=== PATIENT | male | born 1945 | race Caucasian/White ===

== ENCOUNTER → 2018-12-31 08:54 | Outpatient (CLI) | payer MEDICARE, SELFPAY ==
--- NOTE | 2018-12-31 | DI.ECHO.S_ITS ---
[place] [facility]---------+ [facility] +---------+ : : [address] : [place] : : : : [id number] : : : : Phone: [phone]+ Echocardiogram Report + + :Name: PASCUAL OLIVAS Study Date: 12/31/2018 Height: 72 in : :[facility] Weight: 224 lb : : Gender: Male BSA: 2.2 m2 : :: 1945 Age: 73 yrs BP: 118/64 mmHg: :Reason For Study: Mitral Valve- Regurgitation : :Ordering Physician: Jesse : :Timo Performed By: Kathryn Almaguer : :Referring: Dr. Rick Kraft : + + Interpretation Summary The left ventricle is normal in size, wall thickness, and systolic function without any focal wall motion abnormalities with the ejection fraction visually estimated to be 55-60% and appears unchanged compared to the previous study. Diastolic parameters suggest probable normal left ventricular diastolic function and normal filling pressures. There has been no significant change since the previous study. The right ventricle grossly appears normal in size with probable normal systolic function and appears unchanged compared to the previous study. The right ventricular systolic pressure is estimated to be at least 31 mmHg based on an estimated right atrial pressure of 8 mm Hg, and is likely similar compared to the previous study. Both atria are mildly dilated. The right atrium has mildly decreased in size since the prior echo exam. There is mild to moderate mitral regurgitation with an eccentric jet of mitral regurgitation that is directed anteriorly but appears unchanged compared to the previous study. There is no other significant valvular heart disease. The ascending aorta and aortic arch are moderately enlarged, measuring 4.0 and 3.6 cm, respectively, but grossly similar compared to the previous study when they measure 3.9 and 3.4 cm, respectively. The patient was in sinus bradycardia with heart rates between 47-60 bpm during the exam which is unchanged compared to the previous study. Procedure: A two-dimensional transthoracic echocardiogram with color flow and Doppler was performed. The study quality was technically adequate. Comparison is made with the echocardiogram of 04-17-14. The patient was in sinus bradycardia with heart rates between 47-60 bpm during the exam. This is unchanged compared to the previous study. Left Ventricle: The left ventricle is normal in size, wall thickness, and systolic function without any focal wall motion abnormalities. The ejection fraction is estimated to be 55-60%. This is unchanged compared to the previous study. Diastolic parameters suggest probable normal left ventricular diastolic function and normal filling pressures. There has been no significant change since the previous study. Right Ventricle: The right ventricle grossly appears normal in size with probable normal systolic function. This is unchanged compared to the previous study. Atria: Both atria are mildly dilated. The right atrium has mildly decreased in size since the prior echo exam. The interatrial septum is intact with no evidence for an atrial septal defect. Mitral Valve: The mitral valve leaflets appear borderline thickened, but open well. There is mild to moderate mitral regurgitation. There is an eccentric jet of mitral regurgitation that is directed anteriorly. This is unchanged compared to the previous study. Aortic Valve: The aortic valve is trileaflet. The aortic valve opens well. No aortic regurgitation is present. Tricuspid Valve: The tricuspid valve is normal in structure and function. There is a trace or physiologic amount of tricuspid regurgitation. The right ventricular systolic pressure is estimated to be at least 31 mmHg based on an estimated right atrial pressure of 8 mm Hg. This is likely similar compared to the previous study. Pulmonic Valve: The pulmonic valve is normal in structure and function. There is trace pulmonic regurgitation. There is no other significant valvular heart disease. Great Vessels: The aortic root is normal size. The ascending aorta is moderately enlarged. The aortic arch is moderately enlarged. This is similar compared to the previous study. The IVC is dilated (diameter is greater than 2.1 cm) yet it collapses greater than 50% with a sniff. This suggests a right atrial pressure of 8 mm Hg. Pericardium/ Pleura There is no pericardial effusion. There is no pleural effusion. MMode/2D Measurements & Calculations LVIDd: 4.8 cm Ao root diam: 3.6 cm LVIDs: 3.3 cm Aortic Jxn: 2.9 cm FS: 29.9 % asc Aorta Diam: 4.0 cm EPSS: 0.77 cm Ao Arch Diam (Prox Trans): 3.6 cm IVSd: 0.94 cm LVPWd: 0.83 cm LV quinonez. diameter/BSA (cm/m^2): 2.1 LV sys. diameter/BSA (cm/m^2): 1.5 LA dimension: 4.6 cm RA long axis: 6.0 cm LA A2 area: 26.5 cm2 RA area: 23.9 cm2 LA A4 area: 26.1 cm2 RA vol: 80.5 ml LA length (vol): 6.5 cm RA : 36.0 ml/m2 LA vol: 90.2 ml IVC diam: 2.5 cm LA vol index: 40.3 ml/m2 RVDd major: 7.2 cm RVD1 (basal): 3.4 cm RVD2 (mid): 3.1 cm Doppler Measurements & Calculations Ao V2 max: 136.9 cm/sec MV E max neal: 88.6 cm/sec Ao V2 mean: 80.6 cm/sec MV A max neal: 61.5 cm/sec Ao max P.5 mmHg MV E/A: 1.4 Ao mean P.2 mmHg Med Peak E' Neal: 6.2 cm/sec Ao V2 VTI: 30.4 cm E/E' med: 14.3 Lat Peak E' Neal: 9.1 cm/sec E/E' lat: 9.8 E/e' average: 12.0 MV dec time: 0.24 sec MV P1/2t: 71.0 msec TR max neal: 242.6 cm/sec MV P1/2t max neal: 88.1 cm/sec TR max P.5 mmHg MVA(P1/2t): 3.1 cm2 PA V2 max: 67.1 cm/sec PA V2 mean: 42.9 cm/sec PA mean P.90 mmHg PA Accel Time: 0.14 sec Reading Physician:DELPHINE
== END ==
PROVIDERS: PCP Family Medicine; Visit Provider Specialist
DX: I34.0 Nonrheumatic mitral (valve) insufficiency (principal)
CPT/HCPCS: 93306

== ENCOUNTER → 2019-11-30 09:05 | Outpatient (CLI) | payer MEDICARE, SELFPAY ==
[2019-11-30 10:32] LABS: Alanine Aminotransferase 24 IU/L (<50); Albumin 4.4 g/dL (3.5-5.0); Albumin Globulin Ratio 1.9 (1.0-2.8); Alkaline Phosphatase 77 U/L (38-126); Aspartate Aminotransferase 28 IU/L (17-59); BUN Creatinine Ratio 22.2 (6-22); Blood Urea Nitrogen 20 mg/dL (9-20); Calcium 9.9 mg/dL (8.4-10.2); Carbon Dioxide 29 mmol/L (22-32); Chloride 105 mmol/L (98-107); Estimated Glomerular Filt Rate > 60.0 mL/min (>60); Globulin 2.3 g/dL (1.7-4.1); Glucose 105 mg/dL (80-110); HEMOLYSIS < 15 (0-50); Magnesium 2.1 mg/dL (1.6-2.3); Potassium 4.3 mmol/L (3.4-5.1); Sodium 139 mmol/L (137-145); Total Protein 6.7 g/dL (6.3-8.2)
[2019-12-03 09:12] LABS: Cholesterol, Total 113 mg/dL (100-199); HDL-Cholesterol 46 mg/dL (>39); Historical Reading Comment: (.); LDL Particle 649 nmol/L (<1000); LDL Size 19.9 nm (>20.5); LDL-Cholsterol 53 mg/dL (0-99); LP-IR Score 26 (<=45); Small LDL- Particle 424 nmol/L (<=527); Triglycerides 70 mg/dL (0-149)
== END ==
PROVIDERS: PCP Family Medicine; Referring Provider Specialist; Visit Provider Specialist
DX: E78.5 Hyperlipidemia, unspecified (principal)
CPT/HCPCS: 36415; 80053; 80061; 83704; 83735

== ENCOUNTER → 2020-01-03 10:38 | Outpatient (CLI) | payer MEDICARE, SELFPAY ==
[2020-01-03 12:28] LABS: BUN Creatinine Ratio 26.1 (6-22); Blood Urea Nitrogen 24 mg/dL (9-20); Calcium 9.8 mg/dL (8.4-10.2); Carbon Dioxide 28 mmol/L (22-32); Chloride 105 mmol/L (98-107); Estimated Glomerular Filt Rate > 60.0 mL/min (>60); Glucose 95 mg/dL (80-110); HEMOLYSIS < 15 (0-50); Potassium 4.3 mmol/L (3.4-5.1); Sodium 140 mmol/L (137-145)
== END ==
PROVIDERS: PCP Family Medicine; Referring Provider Specialist; Visit Provider Specialist
DX: I10 Essential (primary) hypertension (principal); E78.00 Pure hypercholesterolemia, unspecified
CPT/HCPCS: 36415; 80048

== ENCOUNTER → 2020-02-14 09:49 | Outpatient (CLI) | payer MEDICARE, SELFPAY ==
[2020-02-14 10:55] LABS: BUN Creatinine Ratio 26.3 (6-22); Blood Urea Nitrogen 26 mg/dL (9-20); Calcium 9.4 mg/dL (8.4-10.2); Carbon Dioxide 28 mmol/L (22-32); Chloride 105 mmol/L (98-107); Estimated Glomerular Filt Rate > 60.0 mL/min (>60); Glucose 105 mg/dL (80-110); HEMOLYSIS < 15 (0-50); Potassium 4.4 mmol/L (3.4-5.1); Sodium 139 mmol/L (137-145)
== END ==
PROVIDERS: PCP Family Medicine; Referring Provider Specialist; Visit Provider Specialist
DX: I10 Essential (primary) hypertension (principal)
CPT/HCPCS: 36415; 80048

== ENCOUNTER → 2020-10-26 09:43 | Outpatient (CLI) | payer MEDICARE, SELFPAY ==
[2020-10-26 11:10] LABS: Alanine Aminotransferase 20 IU/L (<50); Albumin 4.2 g/dL (3.5-5.0); Albumin Globulin Ratio 1.4 (1.0-2.8); Alkaline Phosphatase 87 U/L (38-126); Aspartate Aminotransferase 25 IU/L (17-59); BUN Creatinine Ratio 26.1 (6-22); Bilirubin Total 0.9 mg/dL (0.2-1.3); Blood Urea Nitrogen 23 mg/dL (9-20); Calcium 9.8 mg/dL (8.4-10.2); Carbon Dioxide 26 mmol/L (22-32); Chloride 105 mmol/L (98-107); Estimated Glomerular Filt Rate > 60.0 mL/min (>60); Globulin 2.9 g/dL (1.7-4.1); Glucose 103 mg/dL (80-110); HEMOLYSIS < 15 (0-50); Magnesium 2.1 mg/dL (1.6-2.3); Potassium 4.2 mmol/L (3.4-5.1); Sodium 138 mmol/L (137-145); Total Protein 7.1 g/dL (6.3-8.2)
[2020-10-28 09:49] LABS: Cholesterol, Total 106 mg/dL (100-199); HDL-Cholesterol 45 mg/dL (>39); HDL-Particle (Total) 29.9 umol/L (>=30.5); LDL Particle 368 nmol/L (<1000); LDL Size 20.3 nm (>20.5); LDL-Cholsterol 47 mg/dL (0-99); LP-IR Score <25 (<=45); Small LDL- Particle <90 nmol/L (<=527); Triglycerides 66 mg/dL (0-149)
== END ==
PROVIDERS: PCP Family Medicine; Referring Provider Specialist; Visit Provider Specialist
DX: E78.00 Pure hypercholesterolemia, unspecified (principal); I10 Essential (primary) hypertension
CPT/HCPCS: 36415; 80053; 80061; 83704; 83735

== ENCOUNTER → 2023-04-13 09:19 | Outpatient (CLI) | payer MEDICARE, SELFPAY ==
[2023-04-13 10:34] LABS: Alanine Aminotransferase 29 IU/L (<50); Albumin 4.1 g/dL (3.5-5.0); Albumin Globulin Ratio 1.6 (1.0-2.8); Alkaline Phosphatase 81 U/L (38-126); Aspartate Aminotransferase 30 IU/L (17-59); BUN Creatinine Ratio 26.2 (6-22); Bilirubin Total 0.8 mg/dL (0.2-1.3); Blood Urea Nitrogen 28 mg/dL (9-20); Carbon Dioxide 27 mmol/L (22-32); Chloride 103 mmol/L (98-107); Estimated Glomerular Filt Rate > 60 mL/min (>60); Globulin 2.6 g/dL (1.7-4.1); Glucose 101 mg/dL (80-110); HEMOLYSIS < 15 (0-50); Potassium 4.5 mmol/L (3.4-5.1); Sodium 137 mmol/L (137-145); Total Protein 6.7 g/dL (6.3-8.2)
[2023-04-16 06:27] LABS: Cholesterol, Total 93 mg/dL (100-199); HDL-Cholesterol 38 mg/dL (>39); HDL-Particle (Total) 27.3 umol/L (>=30.5); LDL Particle 479 nmol/L (<1000); LDL Size 19.9 nm (>20.5); LDL-Cholsterol 36 mg/dL (0-99); LP-IR Score 30 (<=45); Small LDL- Particle 303 nmol/L (<=527); Triglycerides 103 mg/dL (0-149)
== END ==
PROVIDERS: PCP Family Medicine; Referring Provider Specialist; Visit Provider Specialist
DX: E78.00 Pure hypercholesterolemia, unspecified (principal)
CPT/HCPCS: 36415; 80053; 80061; 83704

== ENCOUNTER → 2023-11-28 06:36 | Outpatient (CLI) | payer MEDICARE, SELFPAY ==
--- NOTE | 2023-11-28 06:40 | DI.ECHO.S_ITS ---
[place] +---------+ [facility] : : [address] : : [place] : : [id number] : : Phone: [phone] Echocardiogram Report + + :Name: PASCUAL OLIVAS Study Date: 11/28/2023 Height: 72 in : :Hospital ReadingLocation: Weight: 215 lb : : Gender: Male BSA: 2.2 m2 : :: 1945 Age: 78 yrs BP: 134/77 mmHg: :Reason For Study: NONRHEUMATIC MITRAL VALVE INSUFFICIENCEY : :Ordering Physician: KISHA, : :REMA Performed By: Laci Funk : :Referring: REMA BEARD : + + Interpretation Summary The left ventricle continues to appear normal with an estimated ejection fraction of 60 to 65% and appears slightly more dynamic compared to previous. Diastolic function is likely normal with normal filling pressures and unchanged. The right ventricle is likely borderline enlarged with normal systolic function and appears slightly larger compared to the previous study. Right ventricular systolic pressure cannot be estimated but CVP is likely around 3 mmHg. Both atria are normal in size and measure slightly smaller compared to the previous study. There is no significant valvular abnormality. Specifically, there is only trivial mitral regurgitation that appears improved since the previous study. The ascending aorta and aortic arch remain moderately enlarged but unchanged since the previous exam. The patient was in sinus rhythm at 45 to 55 bpm, similar to the previous exam. Procedure: A two-dimensional transthoracic echocardiogram with color flow and Doppler was performed. The study quality was technically adequate. Comparison is made with the echocardiogram of 12/31/2018. The patient was in sinus bradycardia with heart rates between 42-51 bpm during the exam. Left Ventricle: The left ventricle appears normal in size, wall thickness, and systolic function without any focal wall motion abnormalities. The estimated left ventricular end diastolic volume is 116 ml. The ejection fraction is estimated to be 60-65%. This is slightly more dynamic compared to the previous study. Diastolic parameters suggest probable normal left ventricular diastolic function and normal filling pressures. This is unchanged compared to the previous study. Right Ventricle: The right ventricle is borderline dilated. The right ventricular systolic function is normal. This is slightly larger compared to the previous study. Atria: Both atria are normal in size. Both atria have mildly decreased in size since the prior echo exam. The interatrial septum grossly appears intact with no obvious evidence for an atrial septal defect. Mitral Valve: The mitral valve leaflets are slightly calcified. There is no mitral valve stenosis. There is trace mitral regurgitation. This is less prominent compared to the previous study. Aortic Valve: The aortic valve is trileaflet. The aortic valve opens well. There is no aortic valve stenosis. No aortic regurgitation is present. Tricuspid Valve: The tricuspid valve is not well visualized, but is grossly normal. There is no tricuspid stenosis. There is trace tricuspid regurgitation. Pulmonic Valve: The pulmonic valve is not well visualized. There is no pulmonic valvular stenosis. There is trace pulmonic regurgitation. Great Vessels: The aortic root is normal size. The ascending aorta is moderately enlarged. The aortic arch is moderately enlarged. This is unchanged compared to the previous study. The IVC is of normal diameter and collapses greater than 50% with a sniff. This suggests a low right atrial pressure of 3 mm Hg. Pericardium/ Pleura There is no pericardial effusion. There is no pleural effusion. MMode/2D Measurements & Calculations LVIDd: 4.9 cm LVOT diam: 2.2 cm LVIDs: 3.5 cm Ao root diam: 3.4 cm FS: 29.9 % asc Aorta Diam: 4.1 cm IVSd: 0.81 cm Ao Arch Diam (Prox Trans): 3.6 cm LVPWd: 1.3 cm LV quinonez. diameter/BSA (cm/m^2): 2.3 LV sys. diameter/BSA (cm/m^2): 1.6 LA A2 area: 20.1 cm2 RA long axis: 4.7 cm LA A4 area: 26.5 cm2 RA area: 14.6 cm2 LA length (vol): 6.5 cm RA vol: 38.2 ml LA vol: 69.1 ml RA : 17.4 ml/m2 LA vol index: 31.4 ml/m2 IVC diam: 2.6 cm RVD1 (basal): 4.3 cm RVD2 (mid): 3.6 cm TAPSE: 2.4 cm Doppler Measurements & Calculations Ao V2 max: 120.8 cm/sec LVOT Max Neal: 94.8 cm/sec Ao V2 mean: 88.3 cm/sec LV V1 max P.6 mmHg Ao max P.8 mmHg LV V1 VTI: 24.0 cm Ao mean P.4 mmHg ISIDRO(I,D): 2.8 cm2 Ao V2 VTI: 30.9 cm ISIDRO(V,D): 2.9 cm2 sev ratio: 0.78 ISIDRO indexed to BSA (cm^2/m^2): 1.3 MV E max neal: 82.6 cm/sec TR max neal: 239.8 cm/sec MV A max neal: 64.9 cm/sec TR max P.0 mmHg MV E/A: 1.3 PA V2 max: 107.3 cm/sec Med Peak E' Neal: 7.6 cm/sec PA V2 mean: 75.3 cm/sec E/E' med: 10.8 PA mean P.4 mmHg Lat Peak E' Neal: 9.4 cm/sec PA pr(Accel): 46.5 mmHg E/E' lat: 8.8 E/e' average: 9.8 MV dec time: 0.19 sec SV(LVOT): 87.2 ml Reading Physician:12:12 PM
[2023-11-28 09:57] LABS: Alanine Aminotransferase 22 IU/L (<50); Albumin 4.2 g/dL (3.5-5.0); Albumin Globulin Ratio 1.9 (1.0-2.8); Alkaline Phosphatase 78 U/L (38-126); Aspartate Aminotransferase 26 IU/L (17-59); BUN Creatinine Ratio 23.8 (6-22); Bilirubin Total 0.8 mg/dL (0.2-1.3); Blood Urea Nitrogen 29 mg/dL (9-20); Calcium 9.2 mg/dL (8.4-10.2); Carbon Dioxide 23 mmol/L (22-32); Chloride 107 mmol/L (98-107); Estimated Glomerular Filt Rate > 60 mL/min (>60); Globulin 2.2 g/dL (1.7-4.1); Glucose 93 mg/dL (80-110); HEMOLYSIS < 15 (0-50); Magnesium 2.3 mg/dL (1.6-2.3); Potassium 4.5 mmol/L (3.4-5.1); Sodium 140 mmol/L (137-145); Total Protein 6.4 g/dL (6.3-8.2)
[2023-11-30 08:36] LABS: Cholesterol, Total 93 mg/dL (100-199); HDL-Cholesterol 35 mg/dL (>39); HDL-Particle (Total) 26.6 umol/L (>=30.5); Historical Reading Comment: (.); LDL Particle 480 nmol/L (<1000); LDL-Cholsterol 38 mg/dL (0-99); LP-IR Score 42 (<=45); Small LDL- Particle 270 nmol/L (<=527); Triglycerides 108 mg/dL (0-149)
== END ==
PROVIDERS: PCP Family Medicine; Referring Provider Specialist; Visit Provider Specialist
DX: E78.00 Pure hypercholesterolemia, unspecified; I10 Essential (primary) hypertension; I34.0 Nonrheumatic mitral (valve) insufficiency; I77.89 Other specified disorders of arteries and arterioles
CPT/HCPCS: 36415; 80053; 80061; 83704; 83735; 93306

== ENCOUNTER → 2024-10-24 09:34 | Outpatient (CLI) | payer MEDICARE, SELFPAY ==
[2024-10-24 10:46] LABS: Alanine Aminotransferase 23 IU/L (<50); Albumin 4.5 g/dL (3.5-5.0); Alkaline Phosphatase 84 U/L (38-126); Aspartate Aminotransferase 27 IU/L (17-59); BUN Creatinine Ratio 24.6 (6-22); Bilirubin Total 0.8 mg/dL (0.2-1.3); Blood Urea Nitrogen 29 mg/dL (9-20); Calcium 9.9 mg/dL (8.4-10.2); Carbon Dioxide 23 mmol/L (22-32); Chloride 108 mmol/L (98-107); Cholesterol 107 mg/dL (140-199); Estimated Glomerular Filt Rate > 60 mL/min (>60); Globulin 2.3 g/dL (1.7-4.1); Glucose 114 mg/dL (70-99); HDL Cholesterol 38 mg/dL (40-60); HEMOLYSIS 19 (0-50); LDL Cholesterol Calculated 43 mg/dL (<100); Magnesium 2.3 mg/dL (1.6-2.3); Potassium 4.5 mmol/L (3.4-5.1); Sodium 140 mmol/L (137-145); Total Protein 6.8 g/dL (6.3-8.2); Triglycerides 130 mg/dL (35-150)
== END ==
PROVIDERS: PCP Family Medicine; Referring Provider Specialist; Visit Provider Specialist
DX: I10 Essential (primary) hypertension (principal); E78.00 Pure hypercholesterolemia, unspecified
CPT/HCPCS: 36415; 80053; 80061; 83735